=== PATIENT | male | born 1955 | race Caucasian/White ===

== ENCOUNTER 2024-10-03 08:56 | Emergency (ER) | payer MEDICARE, MEDICAID, SELFPAY ==
[2024-10-03 09:09] VITALS: PULSE 109; RESP 22
[2024-10-03 09:10] VITALS: BP 104/76; PULSE 88; RESP 20; TEMP 36.2; O2SAT 100; BMI 18.2
[2024-10-03 09:11] VITALS: BMI 18.2
--- NOTE | 2024-10-03 09:55 | XR_ITS ---
Examination: AP chest single view Technique one AP portable upright chest single view Exam date and time: October 03, 2024 1006 hours Comparison July 14, 2024 INDICATIONS: Dyspnea today COPD history FINDINGS: Prominent hyperexpansion Normal heart size Retrocardiac gastric hernia Accentuation basilar bronchovascular markings No lobar pneumonia Prominent osteopenia IMPRESSION: COPD Basilar bronchitis pattern
--- NOTE | 2024-10-03 09:55 | EKG_ITS ---
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
[2024-10-03 10:15] LABS: Basophils % (Auto) 1 % (0-2.5); Eosinophils # (Auto) 0.2 Thou/mm3 (0.0-0.5); Eosinophils % (Auto) 2 % (0-10); Hematocrit 38.9 % (41.0-53.0); Hemoglobin 13.1 g/dL (13.5-16.0); Immature Granulocytes % (Auto) 0 % (0-0); Immature Granulocytes Auto 0.01 Thou/mm3 (0.00-0.00); Lymphocytes # (Auto) 2.1 Thou/mm3 (1.0-4.8); Lymphocytes % (Auto) 24 % (10-50); Mean Corpuscular HGB Conc 33.7 g/dl (31.0-37.0); Mean Corpuscular Hemoglobin 32.3 pg (25.0-35.0); Mean Corpuscular Volume 96 fL (80-100); Monocytes % (Auto) 11 % (0-12); Neutrophils # (Auto) 5.4 Thou/mm3 (1.8-7.7); Neutrophils % (Auto) 62 % (37-80); Nucleated Red Blood Cell % 0 /100 WBC (0); Platelet Count 340 Thou/mm3 (140-440); RDW Standard Deviation 43.8 fL (35.1-43.9); Red Blood Count 4.06 Miln/mm3 (4.50-5.90); White Blood Count 8.7 Thou/mm3 (3.8-10.6)
[2024-10-03] MEDS: ALBUTEROL/IPRATROPIUM (Duoneb) RT SOL 3 ML NEBU INH (10:20)
[2024-10-03] MEDS: MethylPREDNISolone SOD SUCC 62.5 MG/ML 2ML VIAL 125 MG IV (10:22)
[2024-10-03 10:23] VITALS: PULSE 74; PULSE 75; RESP 16; O2SAT 100; O2SAT 99
[2024-10-03 10:23] LABS: B-Type Natriuretic Peptide < 20 pg/mL (0-100)
[2024-10-03] MEDS: SODIUM CHLORIDE 0.9% 500 ML 500 ML 999 ML IV (10:23)
[2024-10-03 10:26] LABS: Alanine Aminotransferase 12 U/L (10-49); Albumin, Serum 4.8 gm/dL (3.4-4.8); Albumin/Globulin Ratio 2.3 (1.2-2.2); Alkaline Phosphatase 87 U/L (46-116); Anion Gap 6 (7-16); Aspartate Amino Transferase 14 U/L (0-34); BUN/Creatinine Ratio 14 Ratio (12-20); Bilirubin,Total 0.3 mg/dL (0.3-1.2); Blood Urea Nitrogen 11 mg/dL (9-23); Carbon Dioxide 30.3 mMol/L (20.0-31.0); Chloride 105 mMol/L (98-107); Creatinine (Component) 0.8 mg/dL (0.6-1.3); Globulin 2.1 gm/dL (2.3-3.5); Glucose 75 mg/dL (74-106); Magnesium 2.2 mg/dL (1.6-2.6); Osmolality,Calculated 279 (275-295); Potassium 4.3 mMol/L (3.4-5.1); Sodium 141 mMol/L (136-145); Total Protein 6.9 gm/dL (5.7-8.2); Troponin I < 0.020 ng/mL (0.0-0.045); eGFR > 60 See Note
--- NOTE | 2024-10-03 10:53 | PD.EDSOB ---
ED SOB =RME/HPI General Chief Complaint: Shortness of Breath/Dyspnea Stated Complaint: SOB Time Seen by Provider: 10/03/24 09:07 Arrival date/time: 10/03/24 08:56 Limitations: no limitations RME / HPI RME / HPI Narrative: 69 year old male with history of COPD on 2L home oxygen and hypertension presents to the ED BIBA from home for shortness of breath beginning 2 hours [employer]LE [employer]. States his symptoms began after walking within his home and felt like I couldn't catch my breath . Reportedly had given himself 1 breathing treatment and used his trilogy machine without improvement, which he states usually provides relief. Accompanied by a cough although reports is chronic and unchanged. Denies any fever, chills, sweats, n/v, or other symptoms. Related Data Home Medications ?Medication ?Instructions ?Recorded ?Confirmed albuterol sulfate 90 mcg/actuation 2 puff inhalation Q6H PRN 09/13/20 09/13/20 aerosol inhaler (Ventolin HFA) Bronchospasm amlodipine 10 mg tablet 10 mg PO QDAY 09/13/20 09/13/20 aspirin 81 mg chewable tablet 81 mg PO QDAY 09/13/20 09/13/20 (Sathya Chewable Low Dose Aspirin) celecoxib 200 mg capsule 200 mg PO BID 09/13/20 09/13/20 famotidine 40 mg tablet 40 mg PO QDAY 09/13/20 09/13/20 fluticasone fur. 100 mcg-umeclid 1 inh inhalation QDAY 09/13/20 09/13/20 62.5 mcg-vilant 25 mcg inhalat.powder (Trelegy Ellipta) gabapentin 300 mg tablet 300 mg PO BID 09/13/20 09/13/20 hydrocodone 10 mg-acetaminophen 1 tab PO Q6H PRN Pain (Scale Score 09/13/20 09/13/20 325 mg tablet 7-10) lovastatin 40 mg tablet 40 mg PO QDAY 09/13/20 09/13/20 revefenacin 175 mcg/3 mL solution 175 mcg inhalation QDAY 09/13/20 09/13/20 for nebulization (Yupeleei) Previous Rx's ?Medication ?Instructions ?Recorded doxycycline monohydrate 100 mg 100 mg PO BID #14 caps 09/13/20 capsule prednisone 50 mg tablet 50 mg PO QDAY #5 tabs 09/13/20 doxycycline hyclate 100 mg capsule 100 mg PO BID #14 caps 01/05/23 prednisone 10 mg tablet 30 mg (3 x 10 mg) PO BID #18 tabs 01/05/23 prednisone 50 mg tablet 50 mg PO QDAY 5 days #5 tabs 10/03/24 Allergies Allergy/AdvReac Type Severity Reaction Status Date / Time No Known Allergies Allergy Verified 10/03/24 09:12 Review of Systems Review of Systems Narrative Review of Systems: GEN: No fever, no chills, no weight loss EYES: No discharge, no visual changes, no pain HEENT: No ear pain, no congestion, no sore throat PULM: + shortness of breath, +cough CV: No chest pain, no dyspnea on exertion, no palpitations GI: No nausea, no vomiting, no diarrhea, no pain, no constipation : No frequency, no urgency, no dysuria MUSC/SKEL: No joint pain, no back pain SKIN: No rash PSYCH: No hallucinations, no depression HEME/LYMPH: No easy bleeding or bruising tendencies NEURO: No weakness, no headache Past Medical History Past Medical History CARDIAC: Positive Hypertension RESPIRATORY: Positive Chronic Obstructive Pulmonary Disease (COPD) and Asthma MUSCULOSKELETAL: Positive Musculoskeletal Disorders, Rheumatoid Arthritis and Fibromyalgia Social History SMOKING STATUS: Current every day smoker SUBSTANCE USE: unknown ED Exam General Limitations: Present no limitations General appearance: Present alert and in distress (mild ) Head Head exam: Present atraumatic, normocephalic and normal inspection Eye Eye exam: Present normal appearance, PERRL and EOMI ENT ENT exam: Present normal exam, normal oropharynx and mucous membranes moist Neck Neck exam: Present normal inspection, full ROM and trachea midline Chest Chest inspection: Present normal inspection and symmetric chest wall rise Respiratory Respiratory exam: Present other (Distant lung sounds, mild scattered wheezes in the bases ) Cardiovascular Cardiovascular exam: Present regular rate, normal rhythm and normal heart sounds Abdominal Exam Abdominal exam: Present soft and normal bowel sounds Extremities Exam Extremities exam: Present normal inspection and full ROM Back Exam Back exam: Present normal inspection and full ROM Neurological Exam Neurological exam: Present alert, oriented X3 and CN II-XII intact Psychiatric Psychiatric exam: Present normal affect and normal mood Skin Skin exam: Present warm, dry, intact and normal color Course Course Course Narrative: chest xray ordered to help determine etiology of shortness of breath. 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 10/03/24 09:55 Completed Continuous Pulse Oximetry NOW Care 10/03/24 09:55 Completed EKG (ED ONLY) *Do not use* NOW Care 10/03/24 09:55 Completed Insert IV NOW Care 10/03/24 09:55 Completed EKG (ED Only) Stat Exams 10/03/24 09:55 Draft XR chest 1V portable Stat Exams 10/03/24 09:55 Completed B-Type Natriuretic Peptide Stat Lab 10/03/24 10:02 Completed CBC Stat Lab 10/03/24 10:02 Completed Comprehensive Metabolic Panel Stat Lab 10/03/24 10:02 Completed Magnesium Stat Lab 10/03/24 10:02 Completed Troponin I Stat Lab 10/03/24 10:02 Completed Albuterol/Ipratr Rt Jessie [Duoneb Rt Jessie] Med 10/03/24 09:55 Discontinued 3 ml INH X1 ONE MethylPREDNISolone.* [SoluMEDROL Inj] Med 10/03/24 09:55 Discontinued 125 mg IV X1 ONE Sodium Chloride 0.9% 500 ml [Ns] 500 ml Med 10/03/24 09:55 Discontinued IV 999 mls/hr Oxygen Delivery NOW RT 10/03/24 09:55 Completed Reevaluation(s) Reevaluation #1: Patient reports improvement after breathing treatment. We reviewed all the results, analysis, and treatment plans. Patient is amenable to discharge. Strict return precautions were outlined. Patient was discharged in stable condition. Time: 12:15 Vital Signs Vital signs: Vital Signs Temperature 97.2 F 10/03/24 09:10 Pulse Rate 88 10/03/24 09:10 Respiratory Rate 20 10/03/24 09:10 Blood Pressure 104/76 10/03/24 09:10 Pulse Oximetry (%) 100 10/03/24 09:10 Oxygen Delivery Method [place] Nasal Cannula 10/03/24 09:10 Oxygen Flow Rate 8 10/03/24 09:10 Shortness of Breath / Dyspnea MDM Narrative MDM Narrative:: Ericka Sanchez am scribing for and in the presence of Dr. Potts. Patient data External records reviewed:: [facility] previous records (I reviewed ED visit on 07/14/2024) and EMS form Clinical information provided by:: patient and EMS Social determinants that could affect healthcare access:: other (specify) (Active tobacco smoker, 1-2 cigs/day. Hx of smoking 1.5 pack for 55 years. ) Patient has the following chronic illnesses:: COPD on 2L home oxygen and hypertension How is presenting disease/condition affected by chronic disease/condition?: exacerbated by Evaluation data The following diagnostics were reviewed and interpreted by me:: lab results, radiology exam(s) and EKG tracing(s) (NSR, rate 70, normal axis, no ectopy, no acute ischemia ) Lab and/or radiology exams considered but not ordered:: None Interpretation Summary: Ordering Physician: Joseph Potts MD Date of Service: 10/03/24 Procedure(s): XR chest 1V portable Accession Number(s): [id number] cc: Jerome Schaffer MD; NO PRIMARY/FAMILY,PHYSICIAN; Joseph Potts MD~ Examination: AP chest single view Technique one AP portable upright chest single view Exam date and time: October 03, 2024 1006 hours Comparison July 14, 2024 INDICATIONS: Dyspnea today COPD history FINDINGS: Prominent hyperexpansion Normal heart size Retrocardiac gastric hernia Accentuation basilar bronchovascular markings No lobar pneumonia Prominent osteopenia IMPRESSION: COPD Basilar bronchitis pattern Dictated By: Jerome Schaffer MD Signed By: <Electronically signed by Jerome Schaffer MD in OV> 10/03/24 1134 Medications / Prescriptions Medications or Prescriptions considered but not ordered:: None Medication administrations:: Medication Administration History Discontinued Medications Albuterol/Ipratropium (Albuterol/Ipratropium (Duoneb) Rt Jessie 3 Ml Nebu) 3 ml INH X1 ONE Stop: 10/03/24 09:56 Last Admin: 10/03/24 10:20 Dose: 3 ml Documented By: DESIREE Sodium Chloride (Ns) 500 mls @ 999 mls/hr IV .Q31M ONE Stop: 10/03/24 10:25 Last Infusion: 10/03/24 12:34 Dose: Infused Documented By: Admin: 10/03/24 10:23 Dose: 999 mls/hr Documented By: Methylprednisolone Sodium Succinate (Methylprednisolone Sod Succ 62.5 Mg/Ml 2ml Vial) 125 mg IV X1 ONE Stop: 10/03/24 09:56 Last Admin: 10/03/24 10:22 Dose: 125 mg Documented By: MS See above Consultations Consultation(s) initiated? (list below): No Diagnosis Shortness of Breath Differential Diagnosis: acute exacerbation of chronic obstructive airways disease, congestive heart failure and community acquired pneumonia Most likely diagnosis given after review of the tests above:: Acute exacerbation of COPD Admission Indicated Admission indicated?: not indicated Admission Request Was there a request for admission?: No Disposition Plan Disposition Plan: Discharge Discharge Attestation Discharge Attestation: The patient and all family members were given an opportunity to ask questions and understood the discharge instructions. Discharge instructions specifically effects, indications for sooner follow up or return to the emergency department, and the expected course of current diagnosis. Patient condition: Stable Discharge Plan Plan Patient Disposition: HOME (Self Care) Disposition Comment: Stable for discharge Patient condition on transfer: Stable Prescriptions/Referrals Prescriptions/Med Rec: New prednisone 50 mg tablet 50 mg PO QDAY 5 Days Qty: 5 0RF No Action celecoxib 200 mg Capsule 200 mg PO BID famotidine 40 mg Tablet 40 mg PO QDAY lovastatin 40 mg Tablet 40 mg PO QDAY hydrocodone-acetaminophen 10-325 mg Tablet 1 tab PO Q6H PRN (Reason: Pain (Scale Score 7-10)) amlodipine 10 mg Tablet 10 mg PO QDAY aspirin [Sathya Chewable Aspirin] 81 mg Tablet,Chewable 81 mg PO QDAY albuterol sulfate [Ventolin HFA] 90 mcg/actuation Hfa Aerosol Inhaler 2 puff INHALATION Q6H PRN (Reason: Bronchospasm) gabapentin 300 mg Tablet 300 mg PO BID Trelegy Ellipta 100-62.5-25 mcg Blister With Device 1 inh INHALATION QDAY Yupelri 175 mcg/3 mL Solution For Nebulization 175 mcg INHALATION QDAY prednisone 50 mg tablet 50 mg PO QDAY Qty: 5 0RF doxycycline monohydrate 100 mg capsule 100 mg PO BID Qty: 14 0RF prednisone 10 mg tablet 30 mg PO BID Qty: 18 0RF Rx Instructions: administer with food or milk doxycycline hyclate 100 mg capsule 100 mg PO BID Qty: 14 0RF Referrals: Wilber Napoles MD [Referring Provider] - In 1 week Problem List Clinical Impression: Acute exacerbation of chronic obstructive airways disease Patient/Caregiver Discharge Instructions Discharge Activity: activity as tolerated Education Materials: Asthma and COPD, Discharge Instructions: COPD, COPD Meds, ED COPD Flare Additional Instructions: Please return to the emergency department for any worsening or any further medical problems Please 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 You should also follow-up with your primary care doctor within the next several days Please take the prednisone in addition to your normal prednisone for the next 5 days. This is an additional 50 mg/day. This will help your breathing. Print Language: Indonesian Stand Alone Forms: Chitra Award Info., Patient Portal Info Letter
[2024-10-03 12:27] VITALS: BP 113/80; PULSE 72; RESP 15; TEMP 36.5; O2SAT 95
== END 2024-10-03 13:47 | disposition home or self-care (01) ==
PROVIDERS: Emergency Provider Emergency Medicine
DX: J44.1 Chronic obstructive pulmonary disease with (acute) exacerbation (principal); F17.210 Nicotine dependence, cigarettes, uncomplicated; I10 Essential (primary) hypertension; Z99.81 Dependence on supplemental oxygen; Z79.51 Long term (current) use of inhaled steroids; Z79.52 Long term (current) use of systemic steroids
CPT/HCPCS: 36415; 71045; 80053; 83735; 83880; 84484; 85025; 93005; 94640; 96360; 96361; 99284; A9270; J2919; J7040

== ENCOUNTER 2025-04-01 10:23 | Emergency (ER) | payer MEDICARE, MEDICAID, SELFPAY ==
[2025-04-01] VITALS (7 sets, daily range): BP systolic 109–136; BP diastolic 81–97; PULSE 73–102; RESP 15–23; TEMP 36.4–36.7; O2SAT 96–99; BMI 18.2
--- NOTE | 2025-04-01 10:36 | EKG_ITS ---
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
--- NOTE | 2025-04-01 12:08 | PD.EDSOB ---
ED SOB =RME/HPI General Chief Complaint: Shortness of Breath/Dyspnea Stated Complaint: SOB Arrival date/time: 04/01/25 10:23 RME / HPI RME / HPI Narrative: 70 year old male with history of COPD on supplemental oxygen, hypertension, hyperlipidemia, arthritis presents to the ED BIBA from home for shortness of breath that began approximately one week ago and worsened significantly overnight. Accompanied by a productive cough, although he states it is not different from his baseline chronic cough. States he typically uses 2?2.5 L/min of oxygen at baseline, but over the past week, he has required 3L at rest and up to 4L with exertion. Also stated he usually administers nebulizer treatments twice daily and uses his rescue inhaler as needed, but over the past week he has used the inhaler daily, with four puffs taken today. Patient denies the use of steroids or antibiotics. Denies any history of prior ICU admissions or intubations. Denies fevers, chills, chest pain, abdominal pain, nausea, vomiting, diarrhea, or urinary symptoms. Related Data Home Medications ?Medication ?Instructions ?Recorded ?Confirmed albuterol sulfate 90 mcg/actuation 2 puff inhalation Q6H PRN 09/13/20 09/13/20 aerosol inhaler (Ventolin HFA) Bronchospasm amlodipine 10 mg tablet 10 mg PO QDAY 09/13/20 09/13/20 aspirin 81 mg chewable tablet 81 mg PO QDAY 09/13/20 09/13/20 (Sathya Chewable Low Dose Aspirin) celecoxib 200 mg capsule 200 mg PO BID 09/13/20 09/13/20 famotidine 40 mg tablet 40 mg PO QDAY 09/13/20 09/13/20 fluticasone fur. 100 mcg-umeclid 1 inh inhalation QDAY 09/13/20 09/13/20 62.5 mcg-vilant 25 mcg inhalat.powder (Trelegy Ellipta) gabapentin 300 mg tablet 300 mg PO BID 09/13/20 09/13/20 hydrocodone 10 mg-acetaminophen 1 tab PO Q6H PRN Pain (Scale Score 09/13/20 09/13/20 325 mg tablet 7-10) lovastatin 40 mg tablet 40 mg PO QDAY 09/13/20 09/13/20 revefenacin 175 mcg/3 mL solution 175 mcg inhalation QDAY 09/13/20 09/13/20 for nebulization (Yupelri) Previous Rx's ?Medication ?Instructions ?Recorded doxycycline monohydrate 100 mg 100 mg PO BID #14 caps 09/13/20 capsule prednisone 50 mg tablet 50 mg PO QDAY #5 tabs 09/13/20 doxycycline hyclate 100 mg capsule 100 mg PO BID #14 caps 01/05/23 prednisone 10 mg tablet 30 mg (3 x 10 mg) PO BID #18 tabs 01/05/23 prednisone 50 mg tablet 50 mg PO QDAY 5 days #5 tabs 04/01/25 Allergies Allergy/AdvReac Type Severity Reaction Status Date / Time No Known Allergies Allergy Verified 10/03/24 09:12 Review of Systems Review of Systems Systems Reviewed: All systems reviewed, normal except as documented Past Medical History Past Medical History CARDIAC: Positive Hypertension RESPIRATORY: Positive Chronic Obstructive Pulmonary Disease (COPD) and Asthma MUSCULOSKELETAL: Positive Musculoskeletal Disorders, Rheumatoid Arthritis and Fibromyalgia Surgical History SURGICAL: Positive Joint Replacement (LEFT FOOT) and of Back Surgery (LOWER BACK, NECK) Social History SMOKING STATUS: Former smoker SUBSTANCE USE: unknown ED Exam Narrative Physical exam: GENERAL APPEARANCE: AxOx4, nontoxic appearing HEENT: NC, AT. MMM. EOMI, clear conjunctiva, oropharynx clear. NECK: Supple without lymphadenopathy. No stiffness or restricted ROM. HEART: Normal rate and regular rhythm, normal S1/S1, no m/r/g LUNGS: [place]-expiratory wheezing, coarse rhonchi bilateral lower lobes ABDOMEN: Soft, nontender, nondistended with good bowel sounds heard. BACK: No midline C/T/L spine pain or deformity, No CVAT, no obvious deformity. EXTREMITIES: Without cyanosis, clubbing or edema. MUSCULOSKELETAL: FROM of all major joints, no chest tenderness NEUROLOGICAL: Grossly nonfocal. Alert and oriented, moving all 4 extremities. CN not formally tested but appear grossly intact. Skin: Warm and dry without any rash. Course Quality Measures none Orders Category Date Time Status EKG (ED ONLY) *Do not use* NOW Care 04/01/25 10:36 Completed EKG (ED Only) Stat Exams 04/01/25 10:36 Draft ALBUTEROL RT 0.5ml [Proventil Rt 0.5ml] Med 04/01/25 12:22 Discontinued 10 mg INH X1 ONE Ipratropium [place] Rt Jessie [Atrovent Rt Jessie] Med 04/01/25 12:22 Discontinued 1 mg INH X1 ONE Sodium Chloride Rt Jessie 0.9% [NS Rt Jessie 0.9%] Med 04/01/25 12:22 Discontinued 3 ml INH PRN PRN predniSONE Med 04/01/25 12:22 Discontinued 60 mg PO X1 ONE Reevaluation(s) Reevaluation #1: After breathing treatment, patient reports feeling better than his good days. We reviewed treatment plans. Patient is amenable to discharge. Strict return precautions were outlined. Patient was discharged in stable condition. Time: 14:15 Vital Signs Vital signs: Vital Signs Temperature 98.1 F 04/01/25 10:28 Pulse Rate 100 04/01/25 10:28 Respiratory Rate 17 04/01/25 10:28 Blood Pressure 133/83 H 04/01/25 10:28 Pulse Oximetry (%) 98 04/01/25 10:28 Oxygen Delivery Method Nasal Cannula 04/01/25 10:28 Oxygen Flow Rate 6 04/01/25 10:28 Shortness of Breath / Dyspnea MDM Narrative MDM Narrative:: Ericka Sanchez am scribing for and in the presence of Dr. Vale. Patient data External records reviewed:: [facility] previous records (I reviewed ED visit on 10/03/2024 ) Clinical information provided by:: patient Social determinants that could affect healthcare access:: none Patient has the following chronic illnesses:: COPD on supplemental oxygen, hypertension, hyperlipidemia, arthritis How is presenting disease/condition affected by chronic disease/condition?: exacerbated by Evaluation data The following diagnostics were reviewed and interpreted by me:: EKG tracing(s) (EKG 03/29/2025 @ 10:36 AM. Sinus tachycardia, rate 103, no STEMI. ) Lab and/or radiology exams considered but not ordered:: None Interpretation Summary: See above Medications / Prescriptions Medications or Prescriptions considered but not ordered:: None Medication administrations:: Medication Administration History Discontinued Medications Albuterol (Albuterol Rt 2.5 Mg/0.5 Ml Nebu) 10 mg INH X1 ONE Stop: 04/01/25 12:23 Last Admin: 04/01/25 12:34 Dose: 10 mg Documented By: GHADA Ipratropium [place] (Ipratropium Rt 0.5 Mg/ 2.5 Ml Nebu) 1 mg INH X1 ONE Stop: 04/01/25 12:23 Last Admin: 04/01/25 12:34 Dose: 1 mg Documented By: BJ Prednisone (Prednisone 20 Mg Tablet) 60 mg PO X1 ONE Stop: 04/01/25 12:23 Last Admin: 04/01/25 12:27 Dose: 60 mg Documented By: GM Sodium Chloride (Sodium Chloride Rt Jessie 0.9% 3 Ml Nebu) 3 ml INH PRN PRN PRN Reason: SOLN Stop: 05/01/25 12:21 Last Admin: 04/01/25 12:34 Dose: 3 ml Documented By: BJ See above Consultations Consultation(s) initiated? (list below): No Diagnosis Shortness of Breath Differential Diagnosis: acute exacerbation of chronic obstructive airways disease, congestive heart failure, community acquired pneumonia and asthma with exacerbation Most likely diagnosis given after review of the tests above:: Acute exacerbation of COPD Admission Indicated Admission indicated?: not indicated Admission Request Was there a request for admission?: No Disposition Plan Disposition Plan: Discharge Discharge Attestation Discharge Attestation: The patient and all family members were given an opportunity to ask questions and understood the discharge instructions. Discharge instructions specifically effects, indications for sooner follow up or return to the emergency department, and the expected course of current diagnosis. Patient condition: Stable Discharge Plan Plan Patient Disposition: HOME (Self Care) Prescriptions/Referrals Prescriptions/Med Rec: New prednisone 50 mg tablet 50 mg PO QDAY 5 Days Qty: 5 0RF No Action celecoxib 200 mg Capsule 200 mg PO BID famotidine 40 mg Tablet 40 mg PO QDAY lovastatin 40 mg Tablet 40 mg PO QDAY hydrocodone-acetaminophen 10-325 mg Tablet 1 tab PO Q6H PRN (Reason: Pain (Scale Score 7-10)) amlodipine 10 mg Tablet 10 mg PO QDAY aspirin [Sathya Chewable Aspirin] 81 mg Tablet,Chewable 81 mg PO QDAY albuterol sulfate [Ventolin HFA] 90 mcg/actuation Hfa Aerosol Inhaler 2 puff INHALATION Q6H PRN (Reason: Bronchospasm) gabapentin 300 mg Tablet 300 mg PO BID Trelegy Ellipta 100-62.5-25 mcg Blister With Device 1 inh INHALATION QDAY Yupelri 175 mcg/3 mL Solution For Nebulization 175 mcg INHALATION QDAY prednisone 50 mg tablet 50 mg PO QDAY Qty: 5 0RF doxycycline monohydrate 100 mg capsule 100 mg PO BID Qty: 14 0RF prednisone 10 mg tablet 30 mg PO BID Qty: 18 0RF Rx Instructions: administer with food or milk doxycycline hyclate 100 mg capsule 100 mg PO BID Qty: 14 0RF Referrals: No Primary/Family,Physician [Primary Care Provider] - In 1 week Problem List Clinical Impression: Acute exacerbation of chronic obstructive airways disease Patient/Caregiver Discharge Instructions Education Materials: ED COPD Flare Additional Instructions: Continue with your oxygen at 3 L for the next 5 days (for as long as you are on the steroids). For the next 3 days take 1 puff every 6 hours while awake from your rescue inhaler. Follow-up with your primary care doctor in 3 to 5 days for recheck. You can return to the emergency department sooner if symptoms worsen or if you notice any new or concerning issues. Print Language: Kuwaiti Stand Alone Forms: Chitra Award Info., Patient Portal Info Letter
[2025-04-01] MEDS: predniSONE 20 MG TABLET 60 MG PO (12:27)
[2025-04-01] MEDS: ALBUTEROL RT 2.5 MG/0.5 ML NEBU 10 MG INH (12:34)
[2025-04-01] MEDS: SODIUM CHLORIDE RT SOL 0.9% 3 ML NEBU INH (12:34)
[2025-04-01] MEDS: IPRATROPIUM RT 0.5 MG/ 2.5 ML NEBU 1 MG INH (12:34)
--- NOTE | 2025-04-01 12:43 | PC.NURSE ---
rt at bedside for breathing tx
== END 2025-04-01 14:49 | disposition home or self-care (01) ==
PROVIDERS: Emergency Provider Emergency Medicine
DX: J44.1 Chronic obstructive pulmonary disease with (acute) exacerbation (principal); Z99.81 Dependence on supplemental oxygen; E78.5 Hyperlipidemia, unspecified; I10 Essential (primary) hypertension
CPT/HCPCS: 93005; 94644; 99283; J7512

== ENCOUNTER 2025-07-21 08:14 | Inpatient (IN) | payer MEDICARE, MEDICAID, SELFPAY ==
[2025-07-21] VITALS (15 sets, daily range): BP systolic 107–129; BP diastolic 71–83; PULSE 80–102; RESP 13–20; TEMP 36.5–36.7; O2SAT 94–99; BMI 18.2; BMI 18.3
--- NOTE | 2025-07-21 08:28 | EKG_ITS ---
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
--- NOTE | 2025-07-21 08:28 | XR_ITS ---
Examination: AP chest single view Technique one AP portable upright chest single view Date and time: July 21, 2025 0839 hours, comparison October 03, 2024 INDICATIONS: Shortness of breath today. FINDINGS: Early left perihilar pneumonia Normal heart size Retrocardiac gastric hernia. Severe osteopenia IMPRESSION: Early left perihilar pneumonia Mild basilar bronchitis pattern
--- NOTE | 2025-07-21 08:30 | PD.EDSOB ---
ED SOB =RME/HPI General Chief Complaint: Shortness of Breath/Dyspnea Stated Complaint: SOB Time Seen by Provider: 07/21/25 08:28 Source: patient and EMS Arrival date/time: 07/21/25 08:14 Mode of arrival: EMS Limitations: no limitations RME / HPI RME / HPI Narrative: Patient is a 70-year-old male with medical history notable for COPD, chronically oxygen dependent on 3 L, hypertension is in Emergency Department concerns for shortness of breath. Patient states that symptoms started earlier today, denies fevers chills nausea vomiting chest pain abdominal pain dysuria hematuria. No recent travel no sick contacts. Patient quit smoking as long ago. Denies drugs alcohol. Related Data Home Medications ?Medication ?Instructions ?Recorded ?Confirmed albuterol sulfate 90 mcg/actuation 2 puff inhalation Q6H PRN 09/13/20 09/13/20 aerosol inhaler (Ventolin HFA) Bronchospasm amlodipine 10 mg tablet 10 mg PO QDAY 09/13/20 09/13/20 aspirin 81 mg chewable tablet 81 mg PO QDAY 09/13/20 09/13/20 (Sathya Chewable Low Dose Aspirin) celecoxib 200 mg capsule 200 mg PO BID 09/13/20 09/13/20 famotidine 40 mg tablet 40 mg PO QDAY 09/13/20 09/13/20 fluticasone fur. 100 mcg-umeclid 1 inh inhalation QDAY 09/13/20 09/13/20 62.5 mcg-vilant 25 mcg inhalat.powder (Trelegy Ellipta) gabapentin 300 mg tablet 300 mg PO BID 09/13/20 09/13/20 hydrocodone 10 mg-acetaminophen 1 tab PO Q6H PRN Pain (Scale Score 09/13/20 09/13/20 325 mg tablet 7-10) lovastatin 40 mg tablet 40 mg PO QDAY 09/13/20 09/13/20 revefenacin 175 mcg/3 mL solution 175 mcg inhalation QDAY 09/13/20 09/13/20 for nebulization (Yupelri) Previous Rx's ?Medication ?Instructions ?Recorded doxycycline monohydrate 100 mg 100 mg PO BID #14 caps 09/13/20 capsule prednisone 50 mg tablet 50 mg PO QDAY #5 tabs 09/13/20 doxycycline hyclate 100 mg capsule 100 mg PO BID #14 caps 01/05/23 prednisone 10 mg tablet 30 mg (3 x 10 mg) PO BID #18 tabs 01/05/23 Allergies Allergy/AdvReac Type Severity Reaction Status Date / Time No Known Allergies Allergy Verified 10/03/24 09:12 Review of Systems Review of Systems Systems Reviewed: All systems reviewed, normal except as documented Past Medical History Past Medical History CARDIAC: Positive Hypertension RESPIRATORY: Positive Chronic Obstructive Pulmonary Disease (COPD) and Asthma MUSCULOSKELETAL: Positive Musculoskeletal Disorders, Rheumatoid Arthritis and Fibromyalgia Surgical History SURGICAL: Positive Joint Replacement Social History SMOKING STATUS: Former smoker SUBSTANCE USE: unknown ED Exam General Limitations: Present no limitations General appearance: Present alert and other Head Head exam: Present atraumatic and normocephalic Eye Eye exam: Present normal appearance, PERRL and EOMI ENT ENT exam: Present normal exam, normal oropharynx and other (For mucous membranes) Neck Neck exam: Present normal inspection, full ROM and trachea midline Chest Chest inspection: Present normal inspection and symmetric chest wall rise Respiratory Respiratory exam: Present respiratory distress, wheezes, accessory muscle use and prolonged expiratory phase; Absent stridor Cardiovascular Cardiovascular exam: Present regular rate and normal rhythm Abdominal Exam Abdominal exam: Present soft; Absent distention, tenderness or guarding Extremities Exam Extremities exam: Present normal inspection and full ROM Neurological Exam Neurological exam: Present alert, oriented X3 and CN II-XII intact Psychiatric Psychiatric exam: Present normal affect and normal mood Skin Skin exam: Present warm, dry and intact Course Quality Measures none Orders Category Date Time Status Bedside COVID-19 Antigen Test NOW Care 07/21/25 08:28 Active Bedside Influenza A&B Antigen Test NOW Care 07/21/25 08:29 Active EKG (ED ONLY) *Do not use* NOW Care 07/21/25 08:29 Completed CXR [XR chest 1V] Stat Exams 07/21/25 08:28 Completed EKG (ED Only) Stat Exams 07/21/25 08:28 Draft BNP [B-Type Natriuretic Peptide] Stat Lab 07/21/25 08:36 Completed CBC Stat Lab 07/21/25 08:36 Completed CMP [Comprehensive Metabolic Panel] Stat Lab 07/21/25 08:36 Completed Troponin I Stat Lab 07/21/25 08:36 Completed VBG [Venous Blood Gas] Stat Lab 07/21/25 13:46 Ordered ALBUTEROL RT 0.5ml [Proventil Rt 0.5ml] Med 07/21/25 08:28 Discontinued 10 mg INH X1 ONE ALBUTEROL RT 0.5ml [Proventil Rt 0.5ml] Med 07/21/25 12:04 Discontinued 10 mg INH X1 ONE ALBUTEROL RT 0.5ml [Proventil Rt 0.5ml] Med 07/21/25 13:44 Discontinued 10 mg INH X1 ONE Azithromycin Inj [Zithromax Inj] 500 mg Med 07/21/25 13:40 Active Sodium Chloride 0.9% 250 ml [Ns] 250 ml IV X1 Dexamethasone Inj [Decadron Inj] Med 07/21/25 08:45 Discontinued 10 mg IV X1 ONE Ipratropium [place] Rt Jessie [Atrovent Rt Jessie] Med 07/21/25 08:28 Discontinued 1 mg INH X1 ONE Ipratropium [place] Rt Jessie [Atrovent Rt Jessie] Med 07/21/25 12:04 Discontinued 1 mg INH X1 ONE Ipratropium [place] Rt Jessie [Atrovent Rt Jessie] Med 07/21/25 13:44 Discontinued 1 mg INH X1 ONE Magnesium Sulfate 1 gm Ivpb [Magnesium Sulfate Ivpb] Med 07/21/25 13:49 Active 1 gm in 100 ml IV X1 Ringers Lactated 1000 ml [Lactated Ringers] 1,000 ml Med 07/21/25 13:46 Active IV 999 mls/hr cefTRIAXone/D5w 1gm IV premix [Rocephin/D5w 1gm IV Med 07/21/25 13:40 Active premix] 1 gm in 50 ml IV STAT Vital Signs Vital signs: Vital Signs Temperature 97.7 F 07/21/25 08:15 Pulse Rate 88 07/21/25 08:15 Respiratory Rate 19 07/21/25 08:15 Blood Pressure 113/81 07/21/25 08:15 Pulse Oximetry (%) 96 07/21/25 08:15 Oxygen Delivery Method Nasal Cannula 07/21/25 08:15 Oxygen Flow Rate 6 07/21/25 08:15 Shortness of Breath / Dyspnea MDM Narrative MDM Narrative:: Patient is a 70-year-old male is in the emerged from with concerns for shortness of breath. Vital signs and exam as listed. Concern for COPD exacerbation, CHF, ACS arrhythmia pneumonia among others. Ordered labs EKG chest x-ray. Also ordered steroids, hour-long breathing treatment. Labs without acute hematologic abnormality, patient hemoglobin is 13.3. No leukocytosis. Patient does have a left shift. No significant acute electrolyte abnormality. No transaminitis troponin not elevated. BNP within normal limits. Chest x-ray with early perihilar pneumonia. Will provide a biotics. EKG performed today at 8:49 AM notable for sinus rhythm, normal intervals, nonspecific T wave changes, not a cardiac alert. On reevaluation continues to have wheezing and increased work of breathing. Ordered additional breathing treatment, a liter of fluids as well as magnesium. I did discuss with family whether or not the patient feels comfortable for discharge, however the patient and his at bedside did not feel comfortable given his work of breathing. The patient was requiring between 3 and 6 L of supplemental oxygen. Patient is on 3 L at home. Discussed admission with the hospital service for Patient data External records reviewed:: [facility] previous records and EMS form Clinical information provided by:: patient and EMS Social determinants that could affect healthcare access:: none Patient has the following chronic illnesses:: See MDM How is presenting disease/condition affected by chronic disease/condition?: exacerbated by Evaluation data The following diagnostics were reviewed and interpreted by me:: lab results, radiology exam(s) and EKG tracing(s) Lab and/or radiology exams considered but not ordered:: None Interpretation Summary: See MDM Medications / Prescriptions Medications or Prescriptions considered but not ordered:: None Medication administrations:: Medication Administration History Ceftriaxone Sodium/Dextrose (Rocephin/D5w 1gm Iv Premix) 1 gm in 50 mls @ 100 mls/hr IV STAT STA Stop: 07/21/25 14:09 Azithromycin 500 mg/ Sodium (Chloride) 250 mls @ 250 mls/hr IV X1 ONE Stop: 07/21/25 14:39 Lactated Ringer's (Lactated Ringers) 1,000 mls @ 999 mls/hr IV .Q1H1M ONE Stop: 07/21/25 14:46 Magnesium Sulfate/Dextrose (Magnesium Sulfate Ivpb) 1 gm in 100 mls @ 100 mls/hr IV X1 ONE Stop: 07/21/25 14:48 Discontinued Medications Albuterol (Albuterol Rt 2.5 Mg/0.5 Ml Nebu) 10 mg INH X1 ONE Stop: 07/21/25 08:29 Last Admin: 07/21/25 08:44 Dose: 10 mg Documented By: SC Albuterol (Albuterol Rt 2.5 Mg/0.5 Ml Nebu) 10 mg INH X1 ONE Stop: 07/21/25 12:05 Last Admin: 07/21/25 12:26 Dose: 10 mg Documented By: SC Albuterol (Albuterol Rt 2.5 Mg/0.5 Ml Nebu) 10 mg INH X1 ONE Stop: 07/21/25 13:45 Dexamethasone Sodium Phosphate (Dexamethasone Sod Phos Inj 10 Mg/Ml Vial) 10 mg IV X1 ONE Stop: 07/21/25 08:46 Last Admin: 07/21/25 08:51 Dose: 10 mg Documented By: FC Ipratropium [place] (Ipratropium Rt 0.5 Mg/ 2.5 Ml Nebu) 1 mg INH X1 ONE Stop: 07/21/25 08:29 Last Admin: 07/21/25 08:45 Dose: 1 mg Documented By: SC Ipratropium [place] (Ipratropium Rt 0.5 Mg/ 2.5 Ml Nebu) 1 mg INH X1 ONE Stop: 07/21/25 12:05 Last Admin: 07/21/25 12:27 Dose: 1 mg Documented By: SC Ipratropium [place] (Ipratropium Rt 0.5 Mg/ 2.5 Ml Nebu) 1 mg INH X1 ONE Stop: 07/21/25 13:45 See above Consultations Consultation(s) initiated? (list below): Yes Consultation #1 (Physician, Specialty, Details): I spoke with hospitalist team B regarding admission. Diagnosis Shortness of Breath Differential Diagnosis: acute exacerbation of chronic obstructive airways disease, congestive heart failure, community acquired pneumonia, asthma with exacerbation and other Most likely diagnosis given after review of the tests above:: COPD exacerbation PNA Admission Indicated Admission indicated?: indicated Admission Request Was there a request for admission?: Yes Admission Attestation Admission request attestation: Discussed case with Hospitalist service regarding admission. Discussed patients ED course, exam findings, labs, and radiology results. The Hospitalist [agrees] to accept the patient for admission. Disposition Plan Disposition Plan: Admit Critical Care Time Critical Care Time Critical Care Time: Yes Total Critical Care Time (min.): 35 Attestation: The high probability of sudden, clinically significant deterioration in the patient's condition required the highest level of my preparedness to intervene urgently. The services I provided to this patient were to treat and/or prevent clinically significant deterioration. Services included the following: chart data review, reviewing nursing notes and/or old charts, documentation time, automobile sales consultant collaboration regarding findings and treatment options, medication orders and management, direct patient care, vital sign assessments and ordering, interpreting and reviewing diagnostic studies and lab tests. Aggregate critical care time includes only time during which I was engaged in work directly related to the patient's care, as described above, whether at bedside or elsewhere in the Emergency Department. It did not include time spent performing other reported procedures or the services of residents, students, nurses or physician assistants. Discharge Plan Plan Patient Disposition: Admit Acute Care w/in Hospital Prescriptions/Referrals Prescriptions/Med Rec: No Action celecoxib 200 mg Capsule 200 mg PO BID famotidine 40 mg Tablet 40 mg PO QDAY lovastatin 40 mg Tablet 40 mg PO QDAY hydrocodone-acetaminophen 10-325 mg Tablet 1 tab PO Q6H PRN (Reason: Pain (Scale Score 7-10)) amlodipine 10 mg Tablet 10 mg PO QDAY aspirin [Sathya Chewable Aspirin] 81 mg Tablet,Chewable 81 mg PO QDAY albuterol sulfate [Ventolin HFA] 90 mcg/actuation Hfa Aerosol Inhaler 2 puff INHALATION Q6H PRN (Reason: Bronchospasm) gabapentin 300 mg Tablet 300 mg PO BID Trelegy Ellipta 100-62.5-25 mcg Blister With Device 1 inh INHALATION QDAY Yupelri 175 mcg/3 mL Solution For Nebulization 175 mcg INHALATION QDAY prednisone 50 mg tablet 50 mg PO QDAY Qty: 5 0RF doxycycline monohydrate 100 mg capsule 100 mg PO BID Qty: 14 0RF prednisone 10 mg tablet 30 mg PO BID Qty: 18 0RF Rx Instructions: administer with food or milk doxycycline hyclate 100 mg capsule 100 mg PO BID Qty: 14 0RF Referrals: Yoko Elkins PA-C [Primary Care Provider, Emergency Medicine] - In 1 week Problem List Clinical Impression: Acute exacerbation of chronic obstructive airways disease, Pneumonia, Community acquired pneumonia, Asthma exacerbation in COPD Patient/Caregiver Discharge Instructions Print Language: Indian Stand Alone Forms: Chitra Award Info., Patient Portal Info Letter
[2025-07-21] MEDS: ALBUTEROL RT 2.5 MG/0.5 ML NEBU 10 MG INH ×2 (08:44→12:26)
[2025-07-21] MEDS: IPRATROPIUM RT 0.5 MG/ 2.5 ML NEBU 1 MG INH ×2 (08:45→12:27)
[2025-07-21] MEDS: DEXAMETHASONE SOD PHOS INJ 10 MG/ML VIAL IV (08:51)
[2025-07-21 08:52] LABS: Basophils # (Auto) 0.0 Thou/mm3 (0.0-0.2); Basophils % (Auto) 0 % (0-2.5); Eosinophils # (Auto) 0.0 Thou/mm3 (0.0-0.5); Eosinophils % (Auto) 0 % (0-10); Hematocrit 39.5 % (41.0-53.0); Hemoglobin 13.3 g/dL (13.5-16.0); Immature Granulocytes Auto 0.07 Thou/mm3 (0.00-0.00); Lymphocytes # (Auto) 1.2 Thou/mm3 (1.0-4.8); Lymphocytes % (Auto) 14 % (10-50); Mean Corpuscular HGB Conc 33.7 g/dl (31.0-37.0); Mean Corpuscular Hemoglobin 31.7 pg (25.0-35.0); Mean Corpuscular Volume 94 fL (80-100); Monocytes # (Auto) 0.1 Thou/mm3 (0.0-0.8); Monocytes % (Auto) 2 % (0-12); Neutrophils # (Auto) 6.7 Thou/mm3 (1.8-7.7); Neutrophils % (Auto) 83 % (37-80); Nucleated Red Blood Cell # 0.00 Thou/mm3 (0.00-0.00); Nucleated Red Blood Cell % 0 /100 WBC (0); Platelet Count 357 Thou/mm3 (140-440); RDW Standard Deviation 41.1 fL (35.1-43.9); Red Blood Count 4.20 Miln/mm3 (4.50-5.90); White Blood Count 8.1 Thou/mm3 (3.8-10.6)
[2025-07-21 09:11] LABS: B-Type Natriuretic Peptide 56 pg/mL (0-100)
[2025-07-21 09:15] LABS: Alanine Aminotransferase 17 U/L (10-49); Albumin, Serum 4.6 gm/dL (3.4-4.8); Albumin/Globulin Ratio 2.1 (1.2-2.2); Alkaline Phosphatase 101 U/L (46-116); Anion Gap 10 (7-16); Aspartate Amino Transferase 21 U/L (0-34); BUN/Creatinine Ratio 11 Ratio (12-20); Bilirubin,Total 0.3 mg/dL (0.3-1.2); Blood Urea Nitrogen 9 mg/dL (9-23); Calcium 10.0 mg/dL (8.3-10.6); Calcium (Corrected) 10.0 mg/dL (8.5-10.1); Carbon Dioxide 27.9 mMol/L (20.0-31.0); Chloride 105 mMol/L (98-107); Creatinine (Component) 0.8 mg/dL (0.6-1.3); Estimated Creatinine Clearance 67.1 mL/min (>60); Globulin 2.2 gm/dL (2.3-3.5); Glucose 150 mg/dL (74-106); Osmolality,Calculated 286 (275-295); Potassium 4.0 mMol/L (3.4-5.1); Sodium 143 mMol/L (136-145); Total Protein 6.8 gm/dL (5.7-8.2); Troponin I < 0.020 ng/mL (0.0-0.045); eGFR > 60 See Note
[2025-07-21 14:01] LABS: Base Excess, Venous 3 (-3-3); O2 Saturation, Venous 99 % (96-97); PCO2, Venous 34 mmHg (36-56); PO2, Venous 98 mmHg (15-58); pH, Venous 7.50 (7.33-7.66)
[2025-07-21] MEDS: RINGERS LACTATED 1000 ML 1,000 ML 999 ML IV (14:17)
[2025-07-21] MEDS: cefTRIAXone/D5w 1gm IV premix 1 GM/50 ML BAG IV (14:19)
[2025-07-21] MEDS: AZITHROMYCIN INJ 500 MG in SODIUM CHLORIDE 0.9% 250 ML 250 ML 250 MG IV (15:04)
--- NOTE | 2025-07-21 15:57 | ESHP_ITS ---
<Statement entered by Bertram Stout MD - 07/23/25 17:42> I reviewed above note and agree with findings and plans. I have also personally examined the patient with medicine team and went over assessment and plan with medical team including agronomy internship and resident physician. <Statement entered by Susan Rogers MD - 07/21/25 20:54> Mr. Sotomayor is a 70-year-old male with past medical history significant for COPD, hypertension, hyperlipidemia who came in with shortness of breath for 1 day and admitted for further management of acute hypoxic respiratory failure secondary to COPD exacerbation and CAP. Patient was on Augmentin since , currently on day 8. Patient states that his symptoms of pneumonia have not resolved, and continues to have a cough and continued shortness of breath. Patient normally uses 2 to 3 L oxygen at home, and is currently requiring 6 L in the ED. Patient has received a total of 5 breathing treatments. Patient will be on IV antibiotics including ceftriaxone and azithromycin, breathing treatments both scheduled and as needed, as well as a long-acting beta agonist and an inhaled corticosteroid twice daily as well as steroids daily. Anticipate discharge within 24 to 48 hours. I discussed with and supervised the agronomy internship physician who took care of this patient. I personally saw and examined the patient and discussed the assessment and plan with the entire medicine team, including my attending Dr. Stout, I agree with most of the assessment and plan as documented below Susan Rogers M.D. PGY-3 Disclaimer: Despite multiple revisions, due to the dictation software being used, the document bellow may not be free of grammatical errors including phonetic/typographic errors. However, this does not deter from our commitment to providing health care in the patient's best interest in mind. Documentation for date of: 07/21/25 HPI History of Present Illness Chief complaint: Shortness of breath History of present illness: This is a 70 yom with a h/o COPD, HTN, HLD, and recent treatment for bacterial pneumonia who presented with acute shortness of breath that started this morning. No fever or increase sputum production. No increased leg swelling. No nausea or vomiting. Tried using home nebulizer treatments but still felt short of breath. He was being treated for what sounds like a CAP by his state fire marshal, Dr. Sanford, on 10 day course of Augmentin, day 06/07. He arrived via EMS and and received x1 breathing treatment in the ambulance and x4 breathing treatments in the ED along with dexamethasone. Xray showed bilateral hilar pneumonia. On inital presentation he was on 3-6 L NC on presentation, now down to 2-3 L NC which is his baseline. PMHx: HLD, HTN, COPD, Emphysema. PSHx: Cevical spine fusion, Lumbar fusion, orthopedic surgery of the foot with hardware insertion. 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 Enjoys fishing, hunting, camping. Quit smoking 3-4 months ago, sober since 85, no rec drugs. ED: Course: -Patient presents BP 113/81, HR 88, RR 19, O2 sat 96% on 6L NC after receiving one nebulizer treatment en route with EMS - Chest x-ray with early left perihilar pneumonia. Trop and BNP negative. -Given 1L fluid, Mg, Ceftriaxone, Azithromycin, and dexamethasone. -Admit team called due to patient's increased work of breathing and increased o2 requirements. Patient admitted for Acute hypoxemic resp failure secondary to COPD exacerbation and CAP. Exam Vital Signs Temp Pulse Resp BP Pulse Ox O2 Del Method O2 Flow Rate 98.0 F 94 17 129/77 96 Nasal Cannula 3 07/21/25 15:29 07/21/25 15:29 07/21/25 15:29 07/21/25 15:29 07/21/25 15:29 07/21/25 15:29 07/21/25 15:29 Narrative Exam General: Elderly appearing patient, very lean with broad chest. no acute distress. HEENT: Mucosa moist.Poor dentition, no oropharyngeal lesions. Pupils are equal and reactive to light bilaterally Cardiovascular: Normal S1 and S2. Regular rate and rhythm. No murmur appreciated Respiratory: Expiratory wheezes heard throughout out, lung sounds diminished slightly moreso at the left base compared to the right. Abdomen: Soft, nontender, not distended, Skin: Dry, no rashes or bruising Musculoskeletal: No gross injuries. Able to move all 4 extremities. Non edematous lower extremities. Neuro: Alert and oriented x3. No focal neuro deficits. Psych: Normal affect and mood Results: Labs 07/21/25 08:36 07/21/25 08:36 Labs: Short CBC 07/21/25 Range/Units 08:36 WBC 8.1 (3.8-10.6) Thou/mm3 Hgb 13.3 L (13.5-16.0) g/dL Hct 39.5 L (41.0-53.0) % Plt Count 357 (140-440) Thou/mm3 BMP 07/21/25 08:36 Sodium 143 Potassium 4.0 Chloride 105 Carbon Dioxide 27.9 BUN 9 Creatinine 0.8 Glucose 150 H Calcium 10.0 Cardiac Enzymes 07/21/25 Range/Units 08:36 Troponin I < 0.020 (0.0-0.045) ng/mL Liver Function 07/21/25 Range/Units 08:36 Total Bilirubin 0.3 (0.3-1.2) mg/dL AST 21 (0-34) U/L ALT 17 (10-49) U/L Alkaline Phosphatase 101 (46-116) U/L Albumin 4.6 (3.4-4.8) gm/dL ABG Interpretation ABG results: 07/21/25 13:56 VBG pH 7.50 VBG pCO2 34 L VBG pO2 98 H VBG Base Excess 3 Quality Measures Quality Measures none Advance care planning discussed with:: patient Medications Home Medications and Allergies Home Medications ?Medication ?Instructions ?Recorded ?Confirmed ?Type albuterol sulfate 90 mcg/actuation 2 puff inhalation Q 6H PRN 09/13/20 09/13/20 History aerosol inhaler (Ventolin HFA) Bronchospasm amlodipine 10 mg tablet 10 mg PO QDAY 09/13/2009/13 History aspirin 81 mg chewable tablet 81 mg PO QDAY 09/13/20 1 11/13/19 History (Sathya Chewable Low Dose Aspirin) celecoxib 200 mg capsule 200 mg PO BID 09/13/2009/13 History famotidine 40 mg tablet 40 mg PO QDAY 09/13/2009/13 History fluticasone fur. 100 mcg-umeclid 1 inh inhalation QDAY 09/13/20 09/13/20 History 62.5 mcg-vilant 25 mcg inhalat.powder (Trelegy Ellipta) gabapentin 300 mg tablet 300 mg PO BID 09/13/2009/13 History hydrocodone 10 mg-acetaminophen 1 tab PO Q6H PRN Pain (Scale Score 09/13/20 09/13/20 History 325 mg tablet 7-10) lovastatin 40 mg tablet 40 mg PO QDAY 09/13/2009/13 History revefenacin 175 mcg/3 mL solution 175 mcg inhalation Q DAY 09/13/20 09/13/20 History for nebulization (Yupelri) Allergies Allergy/AdvReac Type Severity Reaction Status Date / Time No Known Allergies Allergy Verified 10/03/24 09:12 Visit Medications Acetaminophen (Acetaminophen 325 Mg Tablet) 650 mg PO Q6H PRN PRN Reason: Fever >100.4 Stop: 08/20/25 15:43 Albuterol/Ipratropium (Albuterol/Ipratropium (Duoneb) Rt Jessie 3 Ml Nebu) 3 ml INH Q4HRRT PERRI Stop: 08/20/25 18:59 Albuterol/Ipratropium (Albuterol/Ipratropium (Duoneb) Rt Jessie 3 Ml Nebu) 3 ml INH Q2HR PRN PRN Reason: SHORTNESS OF BREATH OR WHEEZE Stop: 08/20/25 15:59 Budesonide (Budesonide Rt 0.5 Mg/2 Ml Nebu) 0.5 mg INH BIDRT PERRI Stop: 08/20/25 18:59 Ceftriaxone Sodium/Dextrose (Rocephin/D5w 1gm Iv Premix) 1 gm in 50 mls @ 100 mls/hr IV QDAY PERRI Stop: 07/29/25 08:59 Azithromycin 250 mg/ Sterile (Water 2.5 ml/ Sodium Chloride) 252.5 mls @ 252.5 mls/hr IV X1 PERRI Stop: 07/25/25 15:59 Ondansetron HCl (Ondansetron Inj 2 Mg/Ml Inj 2 Ml) 4 mg IVP Q6H PRN; Protocol PRN Reason: NAUSEA OR VOMITING Stop: 08/20/25 15:43 Salmeterol Xinafoate (Salmeterol Xinafoate 28 Dose Inh) 1 puff INH BIDRT PERRI Stop: 08/20/25 18:59 Discontinued Medications Albuterol (Albuterol Rt 2.5 Mg/0.5 Ml Nebu) 10 mg INH X1 ONE Stop: 07/21/25 08:29 Last Admin: 07/21/25 08:44 Dose: 10 mg Albuterol (Albuterol Rt 2.5 Mg/0.5 Ml Nebu) 10 mg INH X1 ONE Stop: 07/21/25 12:05 Last Admin: 07/21/25 12:26 Dose: 10 mg Albuterol (Albuterol Rt 2.5 Mg/0.5 Ml Nebu) 10 mg INH X1 ONE Stop: 07/21/25 13:45 Dexamethasone Sodium Phosphate (Dexamethasone Sod Phos Inj 10 Mg/Ml Vial) 10 mg IV X1 ONE Stop: 07/21/25 08:46 Last Admin: 07/21/25 08:51 Dose: 10 mg Ceftriaxone Sodium/Dextrose (Rocephin/D5w 1gm Iv Premix) 1 gm in 50 mls @ 100 mls/hr IV STAT STA Stop: 07/21/25 14:09 Last Infusion: 07/21/25 14:50 Dose: Infused Azithromycin 500 mg/ Sodium (Chloride) 250 mls @ 250 mls/hr IV X1 ONE Stop: 07/21/25 14:39 Last Admin: 07/21/25 15:04 Dose: 250 mls/hr Lactated Ringer's (Lactated Ringers) 1,000 mls @ 999 mls/hr IV .Q1H1M ONE Stop: 07/21/25 14:46 Last Infusion: 07/21/25 15:30 Dose: Infused Magnesium Sulfate/Dextrose (Magnesium Sulfate Ivpb) 1 gm in 100 mls @ 100 mls/hr IV X1 ONE Stop: 07/21/25 14:48 Last Infusion: 07/21/25 15:29 Dose: Infused Ipratropium [place] (Ipratropium Rt 0.5 Mg/ 2.5 Ml Nebu) 1 mg INH X1 ONE Stop: 07/21/25 08:29 Last Admin: 07/21/25 08:45 Dose: 1 mg Ipratropium [place] (Ipratropium Rt 0.5 Mg/ 2.5 Ml Nebu) 1 mg INH X1 ONE Stop: 07/21/25 12:05 Last Admin: 07/21/25 12:27 Dose: 1 mg Ipratropium [place] (Ipratropium Rt 0.5 Mg/ 2.5 Ml Nebu) 1 mg INH X1 ONE Stop: 07/21/25 13:45 Salmeterol Xinafoate (Salmeterol Xinafoate 28 Dose Inh) 1 puff INH BID PERRI Stop: 08/20/25 20:59 Assessment & Plan Plan 70 yom w/ a h/o of COPD, HTN, HLD who presents with 1 day of shortness of breath, found to have a perihilar pneumonia, admitted for acute hypoxemic respiratory failure secondary to COPD exacerbation and CAP. #Acute Hypoxic Resp failure #COPD exacerbation #Pnuemonia Patient presenting with 1 day of acute shortness breath, found to have left perihilar pneumonia on CXR. Increased O2 requirements, on 6L in the ED while using 3-4 L at home. -Admit med tele -Ceftriaxone 1g daily (07/21- -Azithromycin (07/21- -albuterol/ipratropium q4 with q2 prn. -salmeterol + budesonide -methylprednisolone 40mg daily #HLD -likely continue home meds after med rec. #HTN -likely continue home meds after med rec. Health Maintenance: DVT prophylaxis: SCDs Diet: regular diet [place]: No Lines: PIV CODE STATUS: Full code Disposition: Pending improvement in respiratory status. Patient's plan and care discussed with my attending, Dr Stout, and my senior Dr. Rogers. Marky Caceres DO PGY-1 ([facility] Resident)
[2025-07-21 16:25] LABS: Magnesium 1.8 mg/dL (1.6-2.6)
[2025-07-21] MEDS: BUDESONIDE RT 0.5 MG/2 ML NEBU INH (18:54)
[2025-07-21] MEDS: ALBUTEROL/IPRATROPIUM (Duoneb) RT SOL 3 ML NEBU INH ×2 (18:54→22:22)
[2025-07-21 19:40] LABS: Influenza A Ag Negative; Influenza B Ag Negative
[2025-07-21] MEDS: HYDROcodone/APAP 5/325 TABLET 1 TAB PO (22:39)
[2025-07-22] VITALS (14 sets, daily range): BP systolic 108–140; BP diastolic 68–97; PULSE 77–116; RESP 12–23; TEMP 36.2–37.1; O2SAT 96–99; BMI 18.3
[2025-07-22] MEDS: ALBUTEROL/IPRATROPIUM (Duoneb) RT SOL 3 ML NEBU INH ×6 (02:00→22:07)
[2025-07-22] MEDS: ACETAMINOPHEN 325 MG TABLET 650 MG PO (04:00)
[2025-07-22] MEDS: HYDROcodone/APAP 5/325 TABLET 1 TAB PO (05:46)
[2025-07-22 05:51] LABS: Basophils # (Auto) 0.0 Thou/mm3 (0.0-0.2); Basophils % (Auto) 0 % (0-2.5); Eosinophils # (Auto) 0.0 Thou/mm3 (0.0-0.5); Eosinophils % (Auto) 0 % (0-10); Hematocrit 38.6 % (41.0-53.0); Hemoglobin 13.1 g/dL (13.5-16.0); Immature Granulocytes Auto 0.08 Thou/mm3 (0.00-0.00); Lymphocytes # (Auto) 1.5 Thou/mm3 (1.0-4.8); Lymphocytes % (Auto) 16 % (10-50); Mean Corpuscular HGB Conc 33.9 g/dl (31.0-37.0); Mean Corpuscular Hemoglobin 31.8 pg (25.0-35.0); Mean Corpuscular Volume 94 fL (80-100); Monocytes # (Auto) 1.0 Thou/mm3 (0.0-0.8); Monocytes % (Auto) 11 % (0-12); Neutrophils # (Auto) 7.0 Thou/mm3 (1.8-7.7); Neutrophils % (Auto) 73 % (37-80); Nucleated Red Blood Cell # 0.00 Thou/mm3 (0.00-0.00); Nucleated Red Blood Cell % 0 /100 WBC (0); Platelet Count 348 Thou/mm3 (140-440); RDW Standard Deviation 41.2 fL (35.1-43.9); Red Blood Count 4.12 Miln/mm3 (4.50-5.90); White Blood Count 9.6 Thou/mm3 (3.8-10.6)
[2025-07-22 06:18] LABS: Alanine Aminotransferase 16 U/L (10-49); Albumin, Serum 4.5 gm/dL (3.4-4.8); Albumin/Globulin Ratio 2.3 (1.2-2.2); Alkaline Phosphatase 99 U/L (46-116); Anion Gap 11 (7-16); Aspartate Amino Transferase 17 U/L (0-34); BUN/Creatinine Ratio 14 Ratio (12-20); Bilirubin,Total 0.3 mg/dL (0.3-1.2); Blood Urea Nitrogen 10 mg/dL (9-23); Calcium 10.4 mg/dL (8.3-10.6); Calcium (Corrected) 10.4 mg/dL (8.5-10.1); Carbon Dioxide 30.6 mMol/L (20.0-31.0); Chloride 103 mMol/L (98-107); Creatinine (Component) 0.7 mg/dL (0.6-1.3); Estimated Creatinine Clearance 77.1 mL/min (>60); Globulin 2.0 gm/dL (2.3-3.5); Glucose 126 mg/dL (74-106); Osmolality,Calculated 289 (275-295); Potassium 3.7 mMol/L (3.4-5.1); Sodium 145 mMol/L (136-145); Total Protein 6.5 gm/dL (5.7-8.2); eGFR > 60 See Note
[2025-07-22] MEDS: BUDESONIDE RT 0.5 MG/2 ML NEBU INH (06:39)
--- NOTE | 2025-07-22 07:52 | PC.SS ---
Patient Guerrero Sotomayor is a 70 Year old male admitted for PNA, COPD Exacerbation. SS met with patient at bedside to discuss discharge plan and verify demographic information. Patient appeared to be alert and oriented to time, place and situation. Patient reports madeleine lives at home with his , Cindy Sotomayor who he reports is his surrogate decision maker, [phone]. Patient reports he utilizes a Rollator walker, wheelchair and cane as needed. Patient also reports he utilizes home 02 21/05 at 3L. PCP is Yoko Elkins ([place]). Choice of pharmacy is [id number]. Patient also reports he sees a Answering Service Agent in [place]. At time of discharge patient's will provide transportation. Discharge plan: Home Next of kin: , Cindy Sotomayor PCP: Yoko Elkins
[2025-07-22] MEDS: ASPIRIN 81 MG CHEW PO (09:32)
[2025-07-22] MEDS: GABAPENTIN 300 MG CAPSULE PO ×2 (09:32→20:22)
[2025-07-22] MEDS: cefTRIAXone/D5w 1gm IV premix 1 GM/50 ML BAG IV (09:32)
--- NOTE | 2025-07-22 13:51 | ESPR_ITS ---
<Statement entered by Bertram Stout MD - 07/31/25 14:39> I reviewed above note and agree with findings and plans. I have also personally examined the patient with medicine team and went over assessment and plan with medical team including compensation intern and resident physician. <Statement entered by Becca Stacy MD - 07/22/25 17:31> Patient examined at bedside. No events overnight. Currently on his baseline oxygen requirements 2 L nasal cannula. Was complaining of some shortness of breath that improved with breathing treatment. Continue ceftriaxone and azithromycin in setting of CAP. IV methylprednisone 40 mg daily for COPD exacerbation. Anticipate discharge next 24 hours. The patient's management plan was discussed with my attending physician Dr. Stout. Becca Stacy, PGY-2 <Statement entered by Susan Rogers MD - 07/22/25 15:26> I discussed with and supervised the compensation intern physician who took care of this patient. I personally saw and examined the patient and discussed the assessment and plan with the entire medicine team, including my attending Dr. Stout, I agree with most of the assessment and plan as documented below Susan Rogers M.D. PGY-3 Disclaimer: Despite multiple revisions, due to the dictation software being used, the document bellow may not be free of grammatical errors including phonetic/typographic errors. However, this does not deter from our commitment to providing health care in the patient's best interest in mind. Documentation for date of: 07/22/25 Subjective Subjective Interval history: Mr. Sotomayor is a 70-year-old gentleman with a history of COPD on 2 to 3 L as needed at home, hypertension, hyperlipidemia who presented with shortness of breath and was admitted for COPD exacerbation and concomitant community-acquired pneumonia who failed outpatient treatment with Augmentin who continues on IV steroids and breathing treatments likely discharge tomorrow. 07/23/2025: Patient seen and examined at bedside. Patient present. restarted patient's home Screven Q6 for chronic lower back pain. Currently on 2 L nasal cannula on ceftriaxone and azithromycin for community-acquired pneumonia. Bilateral expiratory wheezing appreciated on exam. Plan to continue with breathing treatments and will provide BiPAP/ CPAP at night as needed likely discharge tomorrow Exam Vital Signs Temp Pulse Resp BP Pulse Ox O2 Del Method O2 Flow Rate 97.1 F 110 H 18 126/97 H 99 Nasal Cannula 2 07/22/25 08:00 07/22/25 12:00 07/22/25 10:38 07/22/25 08:00 07/22/25 10:38 07/22/25 08:00 07/22/25 10:38 Narrative Exam General: Elderly appearing patient, very lean with broad chest. no acute distress. HEENT: Mucosa moist.Poor dentition, no oropharyngeal lesions. Pupils are equal and reactive to light bilaterally Cardiovascular: Normal S1 and S2. Regular rate and rhythm. No murmur appreciated Respiratory: Expiratory wheezes heard throughout out, on 2L NC Abdomen: Soft, nontender, not distended, Skin: Dry, no rashes or bruising Musculoskeletal: No gross injuries. Able to move all 4 extremities. Non edematous lower extremities. Neuro: Alert and oriented x3. No focal neuro deficits. Psych: Normal affect and mood Objective Labs 07/22/25 04:56 07/22/25 04:56 Labs: Laboratory Results - last 24 hr 07/21/25 07/21/25 07/22/25 13:56 18:58 04:56 WBC 9.6 RBC 4.12 L Hgb 13.1 L Hct 38.6 L MCV 94 MCH 31.8 MCHC 33.9 RDW Std Deviation 41.2 Plt Count 348 Neut % (Auto) 73 Lymph % (Auto) 16 [place] % (Auto) 11 Eos % (Auto) 0 Baso % (Auto) 0 Neut # (Auto) 7.0 Lymph # (Auto) 1.5 [place] # (Auto) 1.0 H Eos # (Auto) 0.0 Baso # (Auto) 0.0 Immature Gran # (Auto) 0.08 H Absolute Nucleated RBC 0.00 Immature Gran % 1 H Nucleated RBC % 0 VBG pH 7.50 VBG pCO2 34 L VBG pO2 98 H VBG O2 Sat (Aylin) 99 H VBG Base Excess 3 Sodium 145 Potassium 3.7 Chloride 103 Carbon Dioxide 30.6 Anion Gap 11 BUN 10 Creatinine 0.7 Estim Creat Clear Calc 77.1 eGFR > 60 BUN/Creatinine Ratio 14 Glucose 126 H Calculated Osmolality 289 Calcium 10.4 Corrected Calcium 10.4 H Magnesium 1.8 Total Bilirubin 0.3 AST 17 ALT 16 Alkaline Phosphatase 99 Total Protein 6.5 Albumin 4.5 Globulin 2.0 L Albumin/Globulin Ratio 2.3 H Influenza A (Rapid) Negative Influenza B (Rapid) Negative ABG Interpretation ABG results: 07/21/25 13:56 VBG pH 7.50 VBG pCO2 34 L VBG pO2 98 H VBG Base Excess 3 Quality Measures Quality Measures VTE prophylaxis Advance care planning discussed with:: patient and spouse Assessment & Plan Assessment Current Active Medications: Generic Name Dose Route Start Last Admin Trade Name Freq PRN Reason Stop Dose Admin Acetaminophen 650 mg 07/21/25 15:44 07/22/25 04:00 Acetaminophen 325 Mg Tablet PO 08/20/25 15:43 650 mg Q6H PRN Administration Fever >100.4 Hydrocodone Bitart/Acetaminophen 1 tab 07/22/25 08:49 07/22/25 12:45 Hydrocodone/Apap 10/325 Tab PO 07/27/25 08:48 1 tab Q6H PRN Administration Pain (Scale Score 7-10) Albuterol/Ipratropium 3 ml 07/21/25 19:00 07/22/25 10:36 Albuterol/Ipratropium (Duoneb) Rt Jessie 3 Ml Nebu INH 08/20/25 18:59 3 ml Q4HRRT PERRI Administration Albuterol/Ipratropium 3 ml 07/21/25 16:00 Albuterol/Ipratropium (Duoneb) Rt Jessie 3 Ml Nebu INH 08/20/25 15:59 Q2HR PRN SHORTNESS OF BREATH OR WHEEZE Aspirin 81 mg 07/22/25 09:00 07/22/25 09:32 Aspirin 81 Mg Chew PO 08/21/25 08:59 81 mg QDAY PERRI Administration Atorvastatin Calcium 10 mg 07/22/25 21:00 Atorvastatin Calcium 10 Mg Tablet PO 08/21/25 20:59 HS PERRI Protocol Budesonide 0.5 mg 07/21/25 19:00 07/22/25 06:39 Budesonide Rt 0.5 Mg/2 Ml Nebu INH 08/20/25 18:59 0.5 mg BIDRT PERRI Administration Gabapentin 300 mg 07/22/25 09:00 07/22/25 09:32 Gabapentin 300 Mg Capsule PO 08/21/25 08:59 300 mg BID PERRI Administration Ceftriaxone Sodium/Dextrose 1 gm in 50 mls @ 100 mls/hr 07/22/25 09:00 07/22/25 09:32 Rocephin/D5w 1gm Iv Premix IV 07/29/25 08:59 100 mls/hr QDAY PERRI Administration Azithromycin 250 mg/ Sterile 252.5 mls @ 252.5 mls/hr 07/22/25 16:00 Water 2.5 ml/ Sodium Chloride IV 07/25/25 15:59 X1 PERRI Methylprednisolone Sodium Succinate 40 mg 07/22/25 09:00 07/22/25 09:32 Methylprednisolone Sod Succ 40 Mg/Ml Vial IV 08/21/25 08:59 40 mg QDAY PERRI Administration Ondansetron HCl 4 mg 07/21/25 15:44 Ondansetron Inj 2 Mg/Ml Inj 2 Ml IVP 08/20/25 15:43 Q6H PRN NAUSEA OR VOMITING Protocol Salmeterol Xinafoate 1 puff 07/21/25 19:00 07/22/25 10:37 Salmeterol Xinafoate 28 Dose Inh INH 08/20/25 18:59 Not Given BIDRT PERRI Plan Mr. Sotomayor is a 70-year-old gentleman w/ a h/o of COPD on 2 to 3 L as needed at home, HTN, HLD who presents with 1 day of shortness of breath, who is being treated outpatient for CAP with Augmentin 10-day course presented on day 8 of antibiotic course found to have a perihilar pneumonia on imaging, admitted for acute hypoxemic respiratory failure secondary to COPD exacerbation and CAP. plan to discharge likely tomorrow. continues on supplemental oxygen #Acute Hypoxic Resp failure -resolving #COPD exacerbation -improving #Pnuemonia Patient presenting with 1 day of acute shortness breath, found to have left perihilar pneumonia on CXR. Increased O2 requirements, on 6L in the ED while using 3-4 L at home. Continues to have bilateral expiratory wheezing on exam. CAP much improved -Admit med tele -Ceftriaxone 1g daily (07/21- -Azithromycin (07/21- -albuterol/ipratropium q4 with q2 prn. -Trelegy inhaler 1 puff daily -methylprednisolone 40mg daily -bipap/cpap qhs #HLD - Restart home lovastatin 40 milligrams nightly= atorvasatin 10 mg qhs #HTN Holding home amlodipine 10 mg daily given blood pressure well-controlled systolics in the 120s. #Chronic lower back pain Continue home Screven 5-325 every 6 hours as needed for pain #Neuropathy Continue home gabapentin 300 mg twice daily Health Maintenance: DVT prophylaxis: SCDs Diet: regular diet [place]: No Lines: PIV CODE STATUS: Full code Disposition: Pending improvement in respiratory status.
--- NOTE | 2025-07-22 13:51 | PD.RESHP ---
Documentation for date of: 07/22/25 Exam Vital Signs Temp Pulse Resp BP Pulse Ox O2 Del Method O2 Flow Rate 97.1 F 110 H 18 126/97 H 99 Nasal Cannula 2 07/22/25 08:00 07/22/25 12:00 07/22/25 10:38 07/22/25 08:00 07/22/25 10:38 07/22/25 08:00 07/22/25 10:38 Results: Labs 07/22/25 04:56 07/22/25 04:56 Labs: Short CBC 07/22/25 Range/Units 04:56 WBC 9.6 (3.8-10.6) Thou/mm3 Hgb 13.1 L (13.5-16.0) g/dL Hct 38.6 L (41.0-53.0) % Plt Count 348 (140-440) Thou/mm3 BMP 07/22/25 04:56 Sodium 145 Potassium 3.7 Chloride 103 Carbon Dioxide 30.6 BUN 10 Creatinine 0.7 Glucose 126 H Calcium 10.4 Liver Function 07/22/25 Range/Units 04:56 Total Bilirubin 0.3 (0.3-1.2) mg/dL AST 17 (0-34) U/L ALT 16 (10-49) U/L Alkaline Phosphatase 99 (46-116) U/L Albumin 4.5 (3.4-4.8) gm/dL ABG Interpretation ABG results: 07/21/25 13:56 VBG pH 7.50 VBG pCO2 34 L VBG pO2 98 H VBG Base Excess 3 Quality Measures Quality Measures none Medications Home Medications and Allergies Home Medications ?Medication ?Instructions ?Recorded ?Confirmed ?Type albuterol sulfate 90 mcg/actuation 2 puff inhalation Q4H PRN 09/13/20 07/21/25 History aerosol inhaler (Ventolin HFA) shortness of breath or wheezing amlodipine 10 mg tablet 10 mg PO QDAY 09/13/20 07/21/25 History aspirin 81 mg chewable tablet 81 mg PO QDAY 09/13/20 07/21/25 History (Sathya Chewable Low Dose Aspirin) celecoxib 200 mg capsule 200 mg PO BID 09/13/20 07/21/25 History famotidine 40 mg tablet 40 mg PO QDAY 09/13/20 07/21/25 History fluticasone fur. 100 mcg-umeclid 1 inh inhalation QDAY 09/13/20 07/21/25 History 62.5 mcg-vilant 25 mcg inhalat.powder (Trelegy Ellipta) gabapentin 300 mg tablet 300 mg PO BID 09/13/20 07/21/25 History hydrocodone 10 mg-acetaminophen 1 tab PO Q6H PRN Pain (Scale Score 09/13/20 07/21/25 History 325 mg tablet 7-10) lovastatin 40 mg tablet 40 mg PO QDAY 09/13/20 07/21/25 History arformoterol 15 mcg/2 mL solution 15 mcg inhalation BID 07/21/25 07/21/25 History for nebulization Allergies Allergy/AdvReac Type Severity Reaction Status Date / Time No Known Allergies Allergy Verified 10/03/24 09:12 Visit Medications Acetaminophen (Acetaminophen 325 Mg Tablet) 650 mg PO Q6H PRN PRN Reason: Fever >100.4 Stop: 08/20/25 15:43 Last Admin: 07/22/25 04:00 Dose: 650 mg Hydrocodone Bitart/Acetaminophen (Hydrocodone/Apap 10/325 Tab) 1 tab PO Q6H PRN PRN Reason: Pain (Scale Score 7-10) Stop: 07/27/25 08:48 Last Admin: 07/22/25 12:45 Dose: 1 tab Albuterol/Ipratropium (Albuterol/Ipratropium (Duoneb) Rt Jessie 3 Ml Nebu) 3 ml INH Q4HRRT PERRI Stop: 08/20/25 18:59 Last Admin: 07/22/25 10:36 Dose: 3 ml Albuterol/Ipratropium (Albuterol/Ipratropium (Duoneb) Rt Jessie 3 Ml Nebu) 3 ml INH Q2HR PRN PRN Reason: SHORTNESS OF BREATH OR WHEEZE Stop: 08/20/25 15:59 Aspirin (Aspirin 81 Mg Chew) 81 mg PO QDAY PERRI Stop: 08/21/25 08:59 Last Admin: 07/22/25 09:32 Dose: 81 mg Atorvastatin Calcium (Atorvastatin Calcium 10 Mg Tablet) 10 mg PO HS PERRI; Protocol Stop: 08/21/25 20:59 Budesonide (Budesonide Rt 0.5 Mg/2 Ml Nebu) 0.5 mg INH BIDRT PERRI Stop: 08/20/25 18:59 Last Admin: 07/22/25 06:39 Dose: 0.5 mg Gabapentin (Gabapentin 300 Mg Capsule) 300 mg PO BID [facility] Stop: 08/21/25 08:59 Last Admin: 07/22/25 09:32 Dose: 300 mg Ceftriaxone Sodium/Dextrose (Rocephin/D5w 1gm Iv Premix) 1 gm in 50 mls @ 100 mls/hr IV QDAY [facility] Stop: 07/29/25 08:59 Last Admin: 07/22/25 09:32 Dose: 100 mls/hr Azithromycin 250 mg/ Sterile (Water 2.5 ml/ Sodium Chloride) 252.5 mls @ 252.5 mls/hr IV X1 [facility] Stop: 07/25/25 15:59 Methylprednisolone Sodium Succinate (Methylprednisolone Sod Succ 40 Mg/Ml Vial) 40 mg IV QDAY [facility] Stop: 08/21/25 08:59 Last Admin: 07/22/25 09:32 Dose: 40 mg Ondansetron HCl (Ondansetron Inj 2 Mg/Ml Inj 2 Ml) 4 mg IVP Q6H PRN; Protocol PRN Reason: NAUSEA OR VOMITING Stop: 08/20/25 15:43 Salmeterol Xinafoate (Salmeterol Xinafoate 28 Dose Inh) 1 puff INH BIDRT [facility] Stop: 08/20/25 18:59 Last Admin: 07/22/25 10:37 Dose: Not Given Discontinued Medications Hydrocodone Bitart/Acetaminophen (Hydrocodone/Apap 5/325 Tablet) 1 tab PO X1 ONE Stop: 07/21/25 22:28 Last Admin: 07/21/25 22:39 Dose: 1 tab Hydrocodone Bitart/Acetaminophen (Hydrocodone/Apap 5/325 Tablet) 1 tab PO X1 ONE Stop: 07/22/25 05:40 Last Admin: 07/22/25 05:46 Dose: 1 tab Albuterol (Albuterol Rt 2.5 Mg/0.5 Ml Nebu) 10 mg INH X1 ONE Stop: 07/21/25 08:29 Last Admin: 07/21/25 08:44 Dose: 10 mg Albuterol (Albuterol Rt 2.5 Mg/0.5 Ml Nebu) 10 mg INH X1 ONE Stop: 07/21/25 12:05 Last Admin: 07/21/25 12:26 Dose: 10 mg Albuterol (Albuterol Rt 2.5 Mg/0.5 Ml Nebu) 10 mg INH X1 ONE Stop: 07/21/25 13:45 Last Admin: 07/21/25 17:15 Dose: Not Given Dexamethasone Sodium Phosphate (Dexamethasone Sod Phos Inj 10 Mg/Ml Vial) 10 mg IV X1 ONE Stop: 07/21/25 08:46 Last Admin: 07/21/25 08:51 Dose: 10 mg Ceftriaxone Sodium/Dextrose (Rocephin/D5w 1gm Iv Premix) 1 gm in 50 mls @ 100 mls/hr IV STAT STA Stop: 07/21/25 14:09 Last Infusion: 07/21/25 14:50 Dose: Infused Azithromycin 500 mg/ Sodium (Chloride) 250 mls @ 250 mls/hr IV X1 ONE Stop: 07/21/25 14:39 Last Infusion: 07/21/25 16:08 Dose: Infused Lactated Ringer's (Lactated Ringers) 1,000 mls @ 999 mls/hr IV .Q1H1M ONE Stop: 07/21/25 14:46 Last Infusion: 07/21/25 15:30 Dose: Infused Magnesium Sulfate/Dextrose (Magnesium Sulfate Ivpb) 1 gm in 100 mls @ 100 mls/hr IV X1 ONE Stop: 07/21/25 14:48 Last Infusion: 07/21/25 15:29 Dose: Infused Ipratropium Carpenter (Ipratropium Rt 0.5 Mg/ 2.5 Ml Nebu) 1 mg INH X1 ONE Stop: 07/21/25 08:29 Last Admin: 07/21/25 08:45 Dose: 1 mg Ipratropium Carpenter (Ipratropium Rt 0.5 Mg/ 2.5 Ml Nebu) 1 mg INH X1 ONE Stop: 07/21/25 12:05 Last Admin: 07/21/25 12:27 Dose: 1 mg Ipratropium Carpenter (Ipratropium Rt 0.5 Mg/ 2.5 Ml Nebu) 1 mg INH X1 ONE Stop: 07/21/25 13:45 Last Admin: 07/21/25 17:15 Dose: Not Given Potassium Chloride (Potassium Chloride 20 Meq Tabcr) 40 meq PO X1 ONE Stop: 07/22/25 08:52 Last Admin: 07/22/25 09:32 Dose: 40 meq Salmeterol Xinafoate (Salmeterol Xinafoate 28 Dose Inh) 1 puff INH BID [facility] Stop: 08/20/25 20:59
--- NOTE | 2025-07-22 15:00 | PC.SS ---
SS follow up note; Patient will discharge home within 2 days.
[2025-07-22] MEDS: AZITHROMYCIN INJ 500 MG in SODIUM CHLORIDE 0.9% 250 ML 250 ML 250 MG IV (18:15)
[2025-07-22] MEDS: FLUTICASONE/UMECLIDIN/VILANTEROL 100-62.5-25 MCG INHALER 1 PUFF INH (18:29)
[2025-07-22] MEDS: ATORVASTATIN CALCIUM 10 MG TABLET PO (20:22)
[2025-07-23] VITALS (9 sets, daily range): BP systolic 115–142; BP diastolic 74–95; PULSE 79–853; RESP 12–23; TEMP 36.2; O2SAT 94–99
[2025-07-23] MEDS: ALBUTEROL/IPRATROPIUM (Duoneb) RT SOL 3 ML NEBU INH ×3 (02:20→10:20)
[2025-07-23 05:50] LABS: Basophils # (Auto) 0.0 Thou/mm3 (0.0-0.2); Basophils % (Auto) 0 % (0-2.5); Eosinophils # (Auto) 0.0 Thou/mm3 (0.0-0.5); Eosinophils % (Auto) 0 % (0-10); Hematocrit 39.9 % (41.0-53.0); Hemoglobin 13.2 g/dL (13.5-16.0); Immature Granulocytes Auto 0.08 Thou/mm3 (0.00-0.00); Lymphocytes # (Auto) 1.7 Thou/mm3 (1.0-4.8); Lymphocytes % (Auto) 13 % (10-50); Mean Corpuscular HGB Conc 33.1 g/dl (31.0-37.0); Mean Corpuscular Hemoglobin 31.8 pg (25.0-35.0); Mean Corpuscular Volume 96 fL (80-100); Monocytes # (Auto) 1.5 Thou/mm3 (0.0-0.8); Monocytes % (Auto) 12 % (0-12); Neutrophils # (Auto) 9.6 Thou/mm3 (1.8-7.7); Neutrophils % (Auto) 75 % (37-80); Nucleated Red Blood Cell # 0.00 Thou/mm3 (0.00-0.00); Nucleated Red Blood Cell % 0 /100 WBC (0); Platelet Count 410 Thou/mm3 (140-440); RDW Standard Deviation 43.6 fL (35.1-43.9); Red Blood Count 4.15 Miln/mm3 (4.50-5.90); White Blood Count 12.8 Thou/mm3 (3.8-10.6)
[2025-07-23 06:11] LABS: Alanine Aminotransferase 18 U/L (10-49); Albumin, Serum 4.4 gm/dL (3.4-4.8); Albumin/Globulin Ratio 2.3 (1.2-2.2); Alkaline Phosphatase 92 U/L (46-116); Anion Gap 8 (7-16); Aspartate Amino Transferase 30 U/L (0-34); BUN/Creatinine Ratio 26 Ratio (12-20); Bilirubin,Total 0.3 mg/dL (0.3-1.2); Blood Urea Nitrogen 18 mg/dL (9-23); Calcium 9.7 mg/dL (8.3-10.6); Calcium (Corrected) 9.7 mg/dL (8.5-10.1); Carbon Dioxide 31.3 mMol/L (20.0-31.0); Chloride 103 mMol/L (98-107); Creatinine (Component) 0.7 mg/dL (0.6-1.3); Estimated Creatinine Clearance 77.1 mL/min (>60); Globulin 1.9 gm/dL (2.3-3.5); Glucose 128 mg/dL (74-106); Magnesium 1.9 mg/dL (1.6-2.6); Osmolality,Calculated 287 (275-295); Phosphorous 3.9 mg/dL (2.4-5.1); Potassium 4.0 mMol/L (3.4-5.1); Sodium 142 mMol/L (136-145); Total Protein 6.3 gm/dL (5.7-8.2); eGFR > 60 See Note
[2025-07-23] MEDS: FLUTICASONE/UMECLIDIN/VILANTEROL 100-62.5-25 MCG INHALER 1 PUFF INH (06:22)
[2025-07-23] MEDS: PANTOPRAZOLE 40 MG TABLET PO (08:17)
[2025-07-23] MEDS: ASPIRIN 81 MG CHEW PO (08:17)
[2025-07-23] MEDS: GABAPENTIN 300 MG CAPSULE PO (08:17)
[2025-07-23] MEDS: cefTRIAXone/D5w 1gm IV premix 1 GM/50 ML BAG IV (08:18)
--- NOTE | 2025-07-23 10:52 | ESDS_ITS ---
<Statement entered by Bertram Stout MD - 07/31/25 14:39> I reviewed above note and agree with findings and plans. I have also personally examined the patient with medicine team and went over assessment and plan with medical team including inclusion intern and resident physician. Planned Discharge Date 07/23/25 DS: Providers Provider Date of admission: 07/21/25 15:30 Primary care physician: Yoko Elkins PA-C Admitting Provider: Bertram Stout MD Attending Provider on Admission: Bertram Stout MD Attending Provider on DC: Bertram Stout MD Discharging Provider: Bertram Stout MD Anticipated date of discharge: 07/23/25 DS: Diagnosis Problem List Completed Was Problem List Reviewed/Reconciled?: Yes Hospital Course Hospital Course Hospital course: Mr. Sotomayor is a 70-year-old gentleman with a history of COPD on 2 to 3 L as needed at home, hypertension, hyperlipidemia who presented with shortness of breath and was admitted for COPD exacerbation and concomitant community-acquired pneumonia with failed outpatient treatment with Augmentin. Patient was started on salmeterol/budesonide, along with scheduled duoneb treatments. Methyprednisolone was also intiated. Ceftriaxone started for his CAP. He improved steadily over 2 days, had minimal wheezing, and was back to his O2 baseline requirement of 3L NC. Patient was medically cleared on 07/23 and subsequently discharged in stable condition. Recommendations: Your blood pressure was well controlled while in the hospital. Hold your amlodipine until your see your PCP for a follow up. Resume previous medications. Complete steroid course prednisone for 2 more days for treat of COPD exacerbation. Complete antibiotic course as prescribed for treatment of pneumonia and COPD exacerbation. Continue using your home oxygen. Follow up with PCP in 1-2 weeks. Discharge Diagnoses: #Acute Hypoxic Resp failure -resolved #COPD exacerbation -resolved #Pnuemonia -improving #HLD #HTN #Chronic lower back pain #Neuropathy Patient's plan and care discussed with my attending, Dr Stout and my senior Dr Rogers. Marky Caceres, PGY-1 ([facility] Resident) Time Spent with Patient Time attestation: Total time spent providing and/or coordinating discharge services: Time spent: Greater than 30 minutes Exam Vital Signs Temp Pulse Resp BP Pulse Ox O2 Del Method O2 Flow Rate 97.1 F 108 H 23 H 115/95 H 98 Nasal Cannula 2 07/23/25 07:36 07/23/25 10:22 07/23/25 10:22 07/23/25 07:36 07/23/25 10:22 07/23/25 07:36 07/23/25 10:22 FiO2 30 07/23/25 02:20 Narrative Exam General: Elderly appearing patient, very lean with broad chest. no acute distress. HEENT: Mucosa moist. Poor dentition, no oropharyngeal lesions. Pupils are equal and reactive to light bilaterally Cardiovascular: Normal S1 and S2. Regular rate and rhythm. No murmur appreciated Respiratory: Lungs sound mostly clear to ausculation, some occasional expiratory wheezes heard, minimal air flow to the bases. Abdomen: Soft, nontender, not distended, Skin: Dry, no rashes or bruising Musculoskeletal: No gross injuries. Able to move all 4 extremities. Non edematous lower extremities. Neuro: Alert and oriented x3. No focal neuro deficits. Psych: Normal affect and mood Discharge Plan Plan Patient Disposition: HOME (Self Care) Prescriptions/Referrals Prescriptions/Med Rec: New prednisone 20 mg tablet 40 mg PO QDAY Qty: 4 0RF Continued celecoxib 200 mg Capsule 200 mg PO BID famotidine 40 mg Tablet 40 mg PO QDAY lovastatin 40 mg Tablet 40 mg PO QDAY hydrocodone-acetaminophen 10-325 mg Tablet 1 tab PO Q6H PRN (Reason: Pain (Scale Score 7-10)) aspirin [Sathya Chewable Aspirin] 81 mg Tablet,Chewable 81 mg PO QDAY albuterol sulfate [Ventolin HFA] 90 mcg/actuation Hfa Aerosol Inhaler 2 puff INHALATION Q4H PRN (Reason: shortness of breath or wheezing) gabapentin 300 mg Tablet 300 mg PO BID Trelegy Ellipta 100-62.5-25 mcg Blister With Device 1 inh INHALATION QDAY arformoterol 15 mcg/2 mL solution for nebulization 15 mcg inhalation BID Held amlodipine 10 mg Tablet 10 mg PO QDAY Hold Instructions: Resume on 08/05/25. Hold until you see your PCP. Referrals: Yoko Elkins PA-C [Primary Care Provider, Emergency Medicine] Patient/Caregiver Discharge Instructions Other Discharge Activity Instructions:: Your blood pressure was well controlled while in the hospital. Hold your amlodipine until your see your PCP for a follow up. Resume previous medications. Complete steroid course prednisone for 2 more days for treat of COPD exacerbation. Complete antibiotic course as prescribed for treatment of pneumonia and COPD exacerbation. Continue using your home oxygen. Follow up with PCP in 1-2 weeks. Education Materials: Discharge Instructions: COPD Print Language: Dutch Stand Alone Forms: Chitra Award Info., Patient Portal Info Letter Discharge Order Discharge Orders: Discharge (Routine); Ordered 07/23/25 Ordered By: Susan Rogers Quality Discharge Quality Measures VTE prophylaxis
== END 2025-07-23 12:53 | disposition home or self-care (01) | DRG 190 ==
LOC: SERX 13:51 → SERHOLD 15:57 → S3SX 20:15
PROVIDERS: Admitting Provider Internal Medicine; Emergency Provider Emergency Medicine; PCP Physician Assistant; Visit Provider Internal Medicine
DX: J44.1 Chronic obstructive pulmonary disease with (acute) exacerbation (principal); J18.9 Pneumonia, unspecified organism; J96.01 Acute respiratory failure with hypoxia; J44.0 Chronic obstructive pulmonary disease with (acute) lower respiratory infection; I10 Essential (primary) hypertension; G89.29 Other chronic pain; E78.5 Hyperlipidemia, unspecified; G62.9 Polyneuropathy, unspecified; Z79.899 Other long term (current) drug therapy; Z87.891 Personal history of nicotine dependence; Z98.1 Arthrodesis status; Z99.81 Dependence on supplemental oxygen; Z79.82 Long term (current) use of aspirin
CPT/HCPCS: 36415; 71045; 80053; 82803; 83735; 83880; 84100; 84484; 85025; 87502; 87811; 93005; 93225; 94640; 94644; 94660; 94664; 96365; 96366; 99284; A9270; J0456; J0696; J1100; J2919; J3475; J3535; J7050; J7120